=== PATIENT | male | born 1985 | race Caucasian/White ===

== ENCOUNTER 2023-05-17 14:26 | Emergency (ER) | payer MEDICAID ==
[~2023-05-17] VITALS: Ht 167.6 cm; Wt 73.0 kg
[2023-05-17 14:37] VITALS: BP 134/95; PULSE 88; RESP 16; TEMP 98; O2SAT 99
[2023-05-17] MEDS ORDERED: HYDROcodone/APAP 5/325 MG 1 TAB TAB PO ONE (14:50)
[2023-05-17] MEDS ORDERED: ACET-8905 PO (16:00)
[2023-05-17] MEDS ORDERED: METF-352 PO (16:00)
[2023-05-17] MEDS ORDERED: DAPA5TAB PO (16:00)
[2023-05-17] MEDS ORDERED: IBUP-2213 PO (16:00)
== END 2023-05-17 16:57 | disposition home or self-care (01) ==
LOC: MED 14:26
DX: S82.832A Other fracture of upper and lower end of left fibula, initial encounter for closed fracture (principal); E11.9 Type 2 diabetes mellitus without complications; Z76.0 Encounter for issue of repeat prescription; Z79.899 Other long term (current) drug therapy; Z79.1 Long term (current) use of non-steroidal anti-inflammatories (NSAID); W18.31XA Fall on same level due to stepping on an object, initial encounter; Y93.01 Activity, walking, marching and hiking; Y92.89 Other specified places as the place of occurrence of the external cause; Y99.8 Other external cause status
CPT/HCPCS: 29515; 73590; 73610; 99284